=== PATIENT | female | born 1955 | race Caucasian/White ===

== ENCOUNTER 2017-11-19 06:05 | Day surgery (SDC) | payer MEDICARE ==
[2017-11-19] MEDS ORDERED: fentaNYL 100 MCG/2 ML SDV ONE (07:20)
[2017-11-19] MEDS ORDERED: Propofol 200 MG/20 ML SDV ONE (07:20)
[2017-11-19] MEDS ORDERED: Midazolam 1 MG/ML 2 ML SDV ONE (07:20)
[2017-11-19] MEDS ORDERED: Dextrose 5%-Lactated Ringers 1,000 ML IV SCH (08:30)
[2017-11-19] MEDS ORDERED: Ibuprofen 400 MG Tab PO ONE (09:15)
--- NOTE | 2017-11-21 09:55 | OR ---
DATE OF PROCEDURE: 11/19/2017 PREOPERATIVE DIAGNOSIS: Weight regain status post Amador-en-Y gastric bypass. POSTOPERATIVE DIAGNOSIS: Weight regain status post Amador-en-Y gastric bypass associated with enlarged gastric pouch and gastrojejunostomy. OPERATIVE PROCEDURES: Upper GI endoscopy with dilation of gastric pouch for CLOtest. ANESTHESIA: IV sedation. INDICATION FOR PROCEDURE: This is a 62-year-old status post Amador-en-Y gastric bypass in 2007. Had 2 small bowel procedures subsequent to that. She presents now with weight regain of around 30 pounds and feeling that she has not had much in the way of restriction. Plan is to proceed with an upper GI endoscopy for evaluation of her gastric bypass anatomy. Potential risks of the procedure including bleeding and perforation were discussed, and the patient wishes to proceed. DETAILS OF PROCEDURE: The patient was taken to the operating room. After IV sedation was administered and being placed in the left lateral decubitus position, upper GI endoscope was passed orally through the length of the esophagus, into the gastric pouch, and from there roughly 20 cm into the Amador limb. Evaluated esophagus and EG junction were unremarkable. Gastric pouch was quite enlarged, measuring around 10 cm, and the gastrojejunostomy was likewise quite dilated around 4 to 5 cm. There was no marginal ulceration or other specific pathology. Biopsies were obtained from the gastric pouch and sent for CLOtest for H. pylori. Minimal bleeding from the biopsy sites was seen and the procedure then concluded. The patient was taken to the recovery room in a satisfactory condition. The plan will be to review the patient's previous operative reports. We will see her back on 11/30/2017 to discuss possible revisional options. Dirk Hutton MD /[id number]
== END 2017-11-19 09:34 | disposition home or self-care (01) ==
LOC: JP.SDS 06:05
PROVIDERS: ATTEND Surgery
DX: K31.89 Other diseases of stomach and duodenum (principal); I10 Essential (primary) hypertension; F41.9 Anxiety disorder, unspecified; F32.9 Major depressive disorder, single episode, unspecified; Z98.84 Bariatric surgery status; Z88.8 Allergy status to other drugs, medicaments and biological substances
CPT/HCPCS: 87081; A9270-GY; J2250; J2704; J3010; J7042

== ENCOUNTER → 2017-12-02 | Day surgery (SDC) | payer MEDICARE ==
[~2017-12-02] MED LIST: Dextrose 5%-Lactated Ringers 1,000 ML IV SCH; Midazolam 1 MG/ML 2 ML SDV ONE; Propofol 200 MG/20 ML SDV ONE; fentaNYL 100 MCG/2 ML SDV ONE
--- NOTE | 2017-12-05 15:18 | OR ---
DATE OF PROCEDURE: 12/02/2017 PREOPERATIVE DIAGNOSIS: Abdominal pain and bloating. POSTOPERATIVE DIAGNOSIS: Abdominal pain and bloating with a normal colonoscopic examination. OPERATIVE PROCEDURE: Flexible colonoscopy. ANESTHESIA: IV sedation. INDICATIONS FOR PROCEDURE: The patient presents with what appears to be a partial small bowel obstruction, associated with postprandial abdominal pain and bloating. She has not ever had a colonoscopy for a period of time, and to rule out a colonic partial obstruction, the patient is to undergo a colonoscopy at this point. Potential risks of the procedure including bleeding and perforation were discussed and the patient wishes to proceed. DETAILS OF PROCEDURE: The patient was taken to the operating room and placed in a left lateral decubitus position. IV sedation was administered, after which the initial digital rectal exam was performed and was unremarkable. Colonoscope was passed into the rectum with retroflexion revealing uncomplicated hemorrhoidal columns. The scope was eventually passed to the cecum. The prep was fair with there being a moderate amount of liquid stool present. To that level, no abnormalities were noted. There were no diverticula, polyps, or other signs of neoplasia, and no areas of colitis. The scope was then withdrawn. The above findings were reconfirmed and the procedure then concluded. At this point, the plan will be to proceed with a diagnostic laparoscopy for what appears to be a partial small bowel obstruction associated with her gastric bypass status. This will be scheduled for this coming Tuesday. Dirk Hutton MD /[id number]
== END ==
LOC: JP.SDS 07:47
PROVIDERS: ATTEND Surgery
DX: R14.0 Abdominal distension (gaseous) (principal); R10.9 Unspecified abdominal pain; K21.9 Gastro-esophageal reflux disease without esophagitis; F32.9 Major depressive disorder, single episode, unspecified; E03.9 Hypothyroidism, unspecified
CPT/HCPCS: 45378; J2250; J2704; J3010; J7042

== ENCOUNTER 2017-12-05 07:35 | Inpatient (IN) | payer MEDICARE ==
[2017-12-05] MEDS ORDERED: Scopolamine 1.5 MG Transdermal Patch TOP SCH (08:00)
[2017-12-05] MEDS ORDERED: Acetaminophen 500 MG Tab PO ONE (08:00)
[2017-12-05] MEDS ORDERED: Dextrose 5%-Lactated Ringers 1,000 ML IV SCH (08:00)
[2017-12-05] MEDS ORDERED: cefOXitin 2 GM in Sodium Chloride 0.9% 50 ML IV ONE (08:00)
[2017-12-05] MEDS ORDERED: Ketamine 500 MG/5 ML MDV IV SCH (09:00)
[2017-12-05] MEDS ORDERED: Ropivacaine 30 ML, Dexamethasone 8 MG, EPINEPHrine 0.4 MG, Sodium Chloride 0.9% 47.6 ML NERVRT SCH ×4 (09:00)
[2017-12-05] MEDS ORDERED: Lidocaine 2% 100 MG/5 ML Syringe IVPUSH ONE (09:00)
[2017-12-05] MEDS ORDERED: cefOXitin 2 GM Vial ONE (09:18)
[2017-12-05] MEDS ORDERED: Glycopyrrolate 0.2 MG/ML 5 ML MDV ONE (09:31)
[2017-12-05] MEDS ORDERED: Neostigmine Methylsulfate 1 MG/ML 5 ML Syringe ONE (09:31)
[2017-12-05] MEDS ORDERED: Dexamethasone 4 MG/ML SDV ONE (09:31)
[2017-12-05] MEDS ORDERED: Ondansetron 4 MG/2 ML SDV ONE (09:31)
[2017-12-05] MEDS ORDERED: Rocuronium 50 MG/5 ML Vial ONE (09:31)
[2017-12-05] MEDS ORDERED: fentaNYL 250 MCG/5 ML SDV ONE (09:31)
[2017-12-05] MEDS ORDERED: Succinylcholine 200 MG/10 ML MDV ONE (09:31)
[2017-12-05] MEDS ORDERED: Propofol 200 MG/20 ML SDV ONE (09:31)
[2017-12-05] MEDS ORDERED: fentaNYL 100 MCG/2 ML SDV ONE ×2 (10:37→12:04)
[2017-12-05] MEDS ORDERED: Lactated Ringers 1,000 ML ONE (10:37)
[2017-12-05] MEDS ORDERED: hydrOXYzine HCl 100 MG/2 ML SDV IM ONE (12:20)
[2017-12-05] MEDS ORDERED: Meperidine PF 25 MG/ML Syringe IVPUSH ONE (13:30)
[2017-12-05] MEDS ORDERED: Metoclopramide 10 MG/2 ML SDV IVPUSH PRN (15:00)
[2017-12-05] MEDS ORDERED: hydrOXYzine HCl 100 MG/2 ML SDV IM PRN (15:00)
[2017-12-05] MEDS ORDERED: Ondansetron 4 MG/2 ML SDV IVPUSH PRN (15:00)
[2017-12-05] MEDS ORDERED: Labetalol 20 MG/4 ML Syringe IVPUSH PRN (15:00)
[2017-12-05] MEDS ORDERED: diphenhydrAMINE 50 MG/ML SDV IVPUSH PRN (15:00)
[2017-12-05] MEDS: Losartan 50 MG Tab PO SCH (15:39)
[2017-12-05] MEDS: Lidocaine 0.4%/D5W 2 GM/500 ML BAG IV SCH (15:40)
[2017-12-05] MEDS ORDERED: MVI, Adult with Vitamin K 10 ML, Thiamine 100 MG, Chromium/Copper/Mang/Selen/Zn 1 ML in... IV SCH ×4 (16:00)
[2017-12-05] MEDS: cefOXitin 2 GM in Sodium Chloride 0.9% 50 ML IV SCH ×2 (16:04→21:48)
[2017-12-05] MEDS: Pantoprazole 40 MG Vial IVPUSH SCH (16:04)
[2017-12-05] MEDS: Acetaminophen Soln 650 MG/20.3 ML UD Cup PO SCH ×2 (16:06→21:48)
[2017-12-05] MEDS ORDERED: Rizatriptan 10 MG Tab.DIS PO PRN (18:39)
[2017-12-05] MEDS: Heparin Sodium 5,000 Units/ML Vial SUBCUT SCH (20:09)
[2017-12-05] MEDS ORDERED: HYDROmorphone/Normal Saline 15 MG/30 ML PCA IV SCH (20:45)
[2017-12-05] MEDS: Gabapentin 250 MG/5 ML Solution ML 470 ML Bottle PO SCH (21:10)
[2017-12-05] MEDS: Dextrose 5%-Lactated Ringers 1,000 ML IV SCH (23:24)
[2017-12-06] MEDS: cefOXitin 2 GM in Sodium Chloride 0.9% 50 ML IV SCH ×2 (02:38→10:41)
[2017-12-06] MEDS ORDERED: Iohexol 647 MG/ML 50 ML SDV PO STA (02:59)
[2017-12-06] MEDS: Acetaminophen Soln 650 MG/20.3 ML UD Cup PO SCH ×4 (04:37→21:15)
[2017-12-06] MEDS: Dextrose 5%-Lactated Ringers 1,000 ML IV SCH ×2 (05:45→12:14)
--- NOTE | 2017-12-06 08:48 | CR ---
Findings: No gross evidence for contrast leakage. No dilated proximal limb on this exam.
[2017-12-06] MEDS: Gabapentin 250 MG/5 ML Solution ML 470 ML Bottle PO SCH (09:51)
[2017-12-06] MEDS: Losartan 50 MG Tab PO SCH (09:53)
[2017-12-06] MEDS: Heparin Sodium 5,000 Units/ML Vial SUBCUT SCH ×2 (09:53→20:38)
[2017-12-06] MEDS: Celecoxib 200 MG Cap PO SCH (09:53)
[2017-12-06] MEDS: Lidocaine 0.4%/D5W 2 GM/500 ML BAG IV SCH (09:55)
[2017-12-06] MEDS: SCOPOLAMINE PATCH CHECK TOP SCH (09:56)
[2017-12-06] MEDS: Levothyroxine 75 MCG Tab PO SCH (10:44)
[2017-12-06] MEDS: DULoxetine 30 MG Cap PO SCH ×2 (10:44→10:48)
[2017-12-06] MEDS: oxyCODONE 5 MG Tab PO PRN ×2 (10:56→20:42)
[2017-12-06] MEDS: Gabapentin 300 MG Cap PO SCH ×2 (14:53→20:38)
[2017-12-06] MEDS ORDERED: MVI, Adult with Vitamin K 10 ML, Thiamine 100 MG, Chromium/Copper/Mang/Selen/Zn 1 ML in... IV SCH ×4 (16:00)
[2017-12-06] MEDS: Pantoprazole 40 MG Vial IVPUSH SCH (16:30)
[2017-12-06] MEDS ORDERED: Furosemide 20 MG/2 ML VIAL IVPUSH ONE (21:00)
[2017-12-07] MEDS: Dextrose 5%-Lactated Ringers 1,000 ML IV SCH (03:03)
[2017-12-07] MEDS: Acetaminophen Soln 650 MG/20.3 ML UD Cup PO SCH ×2 (05:34→09:07)
[2017-12-07] MEDS: Levothyroxine 75 MCG Tab PO SCH (07:30)
[2017-12-07] MEDS: Celecoxib 200 MG Cap PO SCH (07:30)
[2017-12-07] MEDS: Heparin Sodium 5,000 Units/ML Vial SUBCUT SCH (07:32)
[2017-12-07] MEDS ORDERED: Cyanocobalamin (Vitamin B12) 1,000 MCG/ML SDV IM ONE (09:00)
[2017-12-07] MEDS: Gabapentin 300 MG Cap PO SCH (09:04)
[2017-12-07] MEDS: DULoxetine 30 MG Cap PO SCH ×2 (09:04→09:07)
[2017-12-07] MEDS: SCOPOLAMINE PATCH CHECK TOP SCH (09:05)
[2017-12-07] MEDS: Losartan 50 MG Tab PO SCH (09:05)
[2017-12-07] MEDS: oxyCODONE 5 MG Tab PO PRN (09:11)
--- NOTE | 2017-12-07 10:26 | DISCH ---
ADMISSION DIAGNOSES: Weight regain following gastric bypass surgery, partial small bowel obstruction, bariatric Amador-en-Y gastric bypass surgery, unspecified surgical malabsorption, B12 deficiency, chronic neck and back pain, depression, hypertension, violation of "treatment agreement," migraine headache, and osteoporosis. DISCHARGE DIAGNOSES: Diagnostic laparoscopy with lysis of adhesions, revision of Amador-en-Y gastric bypass surgery, plication gastric pouch, gastrojejunostomy, revision of the jejunostomy and small bowel resection, repair of diaphragmatic hernia for weight regain associated with abnormal gastric pouch and gastrojejunostomy, partial small bowel obstruction and diaphragmatic hernia. Date of surgery 12/05/2017. HISTORY: Daniela Short has had weight regain following gastric bypass surgery. After preoperative evaluation and discussion of possible risks and possible complications, she wished to proceed with surgical procedure. HOSPITAL COURSE: Daniela had her surgery on 12/05/2017. She had no operative complications. On postop day #1, her upper GI was normal. She was started on step-3 gastric bypass diet and oral pain medication. On postop day #2, she was able to be discharged to home without any complications. She did receive dietary instructions while hospitalized. PHYSICAL EXAMINATION: GENERAL: Daniela Short is a 62-year-old female. VITAL SIGNS: Height is 4 feet 11 inches, weight is 129 pounds. TPR is 96.6, 68, 16. Blood pressure 119/62. HEENT: Negative. NECK: Supple. HEART: Regular rate and rhythm. LUNGS: Clear. ABDOMEN: Negative. Abdominal binder has been on. Incisions sutured, healing well. EXTREMITIES: Without peripheral edema. DISPOSITION: Discharged to home. CONDITION: Stable and improving. FOLLOWUP APPOINTMENT: Mercedes Greenberg PA-C, on 12/15/2017 at 11:00 a.m. HOME MEDICATIONS: 1. Tylenol 650 mg q.6 hours, scheduled for 2 weeks. 2. Celebrex 200 mg oral daily, #14. 3. Oxycodone 5 mg 1 to 2 q.4 hours p.r.n. pain, #40. She is to resume her home medications of, 1. Humira 40 mg subcu as directed. 2. Levothyroxine 125 mcg oral every morning. 3. Cozaar 25 mg oral daily. 4. Skelaxin 800 mg oral 3 times a day. 5. Remeron 15 mg oral at bedtime. 6. Maxalt 10 mg oral as directed p.r.n. headache. 7. Forteo 20 mcg subcu daily. 8. Triamcinolone 1 applicator twice daily. 9. Requip 4 mg oral at bedtime. Stop taking vitamins and supplements until first postop appointment. DISCHARGE INSTRUCTIONS: 1. Diet after discharge: Step-3 gastric bypass diet. Drink 8 to 10 glasses of water a day. 2. Activity: No lifting greater than 10 pounds for 2 weeks and then as tolerated. Other activity, walk 6 times daily inside your house. 3. May shower. 4. Notify provider if fever, increased pain, nausea or vomiting. 5. Keep site clean and dry. Wear abdominal binder for 2 weeks and then as tolerated. SPECIAL INSTRUCTIONS: Use incentive spirometer 10 times every hour while awake for 1 week. Keep a protein and liquid food journal and bring to clinic appointment.
--- NOTE | 2017-12-07 17:26 | PN ---
DATE OF SERVICE: 12/06/2017 The patient has been afebrile with stable vital signs. Pain control was a little problematic yesterday. She is a chronic narcotic user who was just started on FOLDER MACHINE. We will switch her over to some oral oxycodone today in anticipation of likely being discharged home tomorrow. We will, otherwise, restart her other pertinent oral medications and go to a step- 3 diet, maximize activity and work with pulmonary toilet. Dirk Hutton MD /[id number]
[2017-12-07] MEDS ORDERED: ROPINIROLE 2 MG PO SCH (21:00)
--- NOTE | 2017-12-08 08:50 | OR ---
DATE OF PROCEDURE: 12/05/2017 PREOPERATIVE DIAGNOSIS: Weight regain associated with patulous gastric pouch and gastrojejunostomy, status post Amador-en-Y gastric bypass. POSTOPERATIVE DIAGNOSES: 1. Weight regain associated with patulous gastric pouch and gastrojejunostomy, status post Amador-en-Y gastric bypass. 2. Partial small bowel obstruction with area of stricture near the end of the Amador limb. 3. Paraesophageal diaphragmatic hernia. OPERATIVE PROCEDURES: Diagnostic laparoscopy with lysis of adhesions: 1. Revision of Amador-en-Y gastric bypass by means of: a. Plication of gastric pouch and gastrojejunostomy. b. Revision of jejunojejunostomy (40847). 2. Small bowel resection (03575). 3. Repair of paraesophageal diaphragmatic hernia (67540). ANESTHESIA: General. PRICING CONSULTANT: Mercedes Greenberg PA-C. INDICATIONS FOR PROCEDURE: This 62-year-old female presenting with some recent weight regain status post Amador-en-Y gastric bypass. On upper endoscopy, she was noted to have some enlargement and patulousness of the gastric pouch and gastrojejunostomy along with some bile coming back into the Amador limb. The latter was related to what is clinically most likely a partial small bowel obstruction as well. The plan is to proceed with a diagnostic laparoscopy, laparotomy if necessary, and release of the small bowel obstruction. This most likely will involve revision of the jejunojejunostomy, as that seems to be the point of obstruction. If this is the case, we would reestablish the gastrojejunostomy in a more distal configuration, to facilitate some additional weight loss. With the latter, the patient is aware of the potential risks including frequent loose bowel movements and possible nutritional deficiencies being higher risk than with standard limb lengths. We will be a little bit conservative on the limb length change, due to the patient's present frequent episodes of some looser bowel movements as well. Potential risks per se, including bleeding, infection, leaks from the various GI tract closures, and problems with bowel obstruction over time were reviewed, and the patient wishes to proceed. DETAILS OF PROCEDURE: The patient was taken to the operating room and, after general endotracheal anesthesia was induced, she was placed in a lithotomy position. In the left lower quadrant, a transverse incision was made, and the peritoneal cavity was entered under direct vision with an Optiview trocar and inflated to 15 mmHg pressure with CO2. Eventually, 5 additional trocars were placed across the upper and mid-abdomen. There was quite a bit in the way of adhesions between the omentum and the anterior abdominal wall. These were taken down with Harmonic scalpel. Following this, bilateral transversus abdominis plane blocks were placed using the standard solution with visualization of the needle in the correct plane. At this point, attention was taken to the gastric pouch. Some adhesions around the gastric pouch were taken down, and this then allowed placement of the Silvestre tube orally, then through the gastric pouch, and into the main body of the Amador limb. This then allowed plication of the gastric pouch by means of 4 [id number] sutures of 0 Ethibond stitch. Once these were in place, the Silvestre tube was removed and felt not to be overly tightened. Attention was then taken to the small bowel. The Amador limb was traced down to the jejunojejunostomy, where it was noted to be acutely angulated and strictured. This will likely be the point of obstruction. The Amador limb was then divided flush with the jejunojejunostomy. During the course of this dissection, the end of that became ischemic and, therefore, roughly 10 cm of the Amador limb was then excised. After the small bowel resection had been completed, the patient was noted to have a Amador limb length of 90 cm. At this point, the ileocecal valve was identified, and the small bowel was then traced back 250 cm. Again, we would be somewhat conservative in terms of not overtly shortening the common limb so as to avoid too much in the way of loose bowel movements. At that level, a side-to- side enteroenterostomy between the end of the Amador limb was then made with internal firing of the Endo-MIKO 60-mm stapler. The common opening was then closed transversely with the same stapler, angles anastomosed, and mesenteric defect approximated with some 0 Ethibond stitch, along with 4 mL of fibrin sealant. One additional aspect in this case was that, after release of the adhesions from the gastric pouch, the patient was noted to have significant paraesophageal diaphragmatic hernia, and an anterior repair of this was accomplished after dissection of the peritoneum downward. This was accomplished with 0 Ethibond sutures, reinforced with PTFE pledgets. Upon completion of the procedure then, trocars were removed. The fascia at the 12-mm site was closed with 0 Vicryl stitch and the skin with 4-0 Vicryl skin stitch. Dressing was applied. The patient was taken to the recovery room in a satisfactory condition. Physician butcher assistant, Mercedes Greenberg, played an essential role in assisting in this case, helping to position the patient, retract structures as needed, as well as suturing and cutting sutures when indicated. Her presence improved patient safety and decreased the operative time. Dirk Hutton MD /[id number]
== END 2017-12-07 10:05 | disposition home or self-care (01) | DRG 327 ==
LOC: JP.MS 07:35 → JP.SDS 07:35 → EDSTATUS 09:00 → JP.2SS 14:05
PROVIDERS: ADMIT Surgery; ATTEND Surgery
PROC: 0D1A4ZA Bypass Jejunum to Jejunum, Percutaneous Endoscopic Approach (ICD-10-PCS; principal; 2017-12-05)
PROC: 0BQT4ZZ Repair Diaphragm, Percutaneous Endoscopic Approach (ICD-10-PCS; 2017-12-05)
PROC: 0DV Gastrointestinal System, Restriction (ICD-10-PCS; 2017-12-05)
PROC: 0DV Gastrointestinal System, Restriction (ICD-10-PCS; 2017-12-05)
PROC: 0DNU4ZZ Release Omentum, Percutaneous Endoscopic Approach (ICD-10-PCS; 2017-12-05)
PROC: 0DN64ZZ Release Stomach, Percutaneous Endoscopic Approach (ICD-10-PCS; 2017-12-05)
PROC: 0DNW4ZZ Release Peritoneum, Percutaneous Endoscopic Approach (ICD-10-PCS; 2017-12-05)
PROC: 0DBA4ZX Excision of Jejunum, Percutaneous Endoscopic Approach, Diagnostic (ICD-10-PCS; 2017-12-05)
PROC: 3E0T3BZ Introduction of Anesthetic Agent into Peripheral Nerves and Plexi, Percutaneous Approach (ICD-10-PCS; 2017-12-05)
DX: K56.51 Intestinal adhesions [bands], with partial obstruction (principal); K91.2 Postsurgical malabsorption, not elsewhere classified; R63.5 Abnormal weight gain; Z68.26 Body mass index [BMI] 26.0-26.9, adult; K31.89 Other diseases of stomach and duodenum; Z98.84 Bariatric surgery status; Z98.0 Intestinal bypass and anastomosis status; E53.8 Deficiency of other specified B group vitamins; I10 Essential (primary) hypertension; G89.29 Other chronic pain; M54.2 Cervicalgia; F32.9 Major depressive disorder, single episode, unspecified; G43.909 Migraine, unspecified, not intractable, without status migrainosus; K44.9 Diaphragmatic hernia without obstruction or gangrene
CPT/HCPCS: 36415; 74240; 74240-26; 82962; 86850; 86900; 86901; 88307; A9270-GY; C9113; J0171; J0330; J0694; J1100; J1170; J1644; J1940; J2001; J2175; J2405; J2704; J2710; J2795; J3010; J3410; J3411; J3420; J7030; J7040; J7042; J7050; J7120; Q9967